=== PATIENT | female | born 1980 | race Caucasian/White ===

== ENCOUNTER 2019-11-16 09:59 | Emergency (ER) | payer OTHER ==
[2019-11-16 10:07] VITALS: BP 121/76; PULSE 75; TEMP 97.9; BMI 25.8
[2019-11-16] MEDS ORDERED: METOCLOPRAMIDE HCL INJECTION 10 MG/2 ML VIAL IVPB ONE (10:10)
[2019-11-16] MEDS ORDERED: KETOROLAC TROMETHAMINE 30 MG/1 ML VIAL IVPUSH ONE (10:10)
--- NOTE | 2019-11-16 10:10 | PDOC ---
History of Present Illness - General Chief Complaint: Headache Stated Complaint: HEADACHE Time Seen by Provider: 11/16/19 10:08 History Source: Patient - History of Present Illness Timing/Duration: reports: 1 week Past History - Past Medical History Allergies/Adverse Reactions: Allergies Allergy/AdvReac Type Severity Reaction Status Date / Time No Known Allergies Allergy Verified 11/16/19 10:03 Home Medications: Ambulatory Orders Sumatriptan Succinate [Imitrex -] 50 mg PO ASDIR #30 tablet 11/16/19 - Psycho Social/Smoking Cessation Hx Smoking History: Current some day smoker Information on smoking cessation initiated: No Hx Alcohol Use: No Drug/Substance Use Hx: No Review of Systems - Review of Systems Constitutional: No: Chills, Fever ABD/GI: Yes: Nausea. No: Vomiting Neurological: Yes: Headache. No: Numbness, Tingling, Weakness, Dizziness *Physical Exam - Vital Signs Last Vital Signs Temp Pulse Resp BP Pulse Ox 97.9 F 75 17 121/76 98 11/16/19 10:03 11/16/19 10:03 11/16/19 10:03 11/16/19 10:03 11/16/19 10:03 - Physical Exam General Appearance: Yes: Appropriately Dressed. No: Apparent Distress HEENT: positive: Normal Voice. 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 Pain sharp, 10 out of 10 at its worst with no exacerbating factors. Reports nausea and photophobia consistent with her prior migraine headaches. No vomiting dizziness neck pain fever chills or rash. Has no Imitrex at home but has been taking 800 mg Motrin with mild relief only per patient see exam SAUCEDA Recurrent Endorses h/o migraines, ran out of imitrex No new sxs Stable w/ intact neuro exam No red flags at this time -upreg -pain meds and reassess 11/16/19 11:16 Patient reports feeling better with meds. Upreg negative. Dc with prescription for Imitrex and to follow-up with pt's neurologist as needed Discharge - Discharge Information Problems reviewed: Yes Clinical Impression/Diagnosis: Headache Qualifiers: Headache type: unspecified Headache chronicity pattern: unspecified pattern Intractability: not intractable Qualified Code(s): R51 - Headache Condition: Improved Disposition: HOME - Additional Discharge Information Prescriptions: Sumatriptan Succinate [Imitrex -] 50 mg PO ASDIR #30 tablet - Follow up/Referral - Patient Discharge Instructions Patient Printed Discharge Instructions: Migraine -- Adult Additional Instructions: Take Medication as directed for headache and follow-up with your neurologist as needed - Post Discharge Activity Work/Back to School Note: Back to Work
[2019-11-16] MEDS ORDERED: KETOROLAC TROMETHAMINE 30 MG/1 ML VIAL ONE (10:16)
[2019-11-16] MEDS ORDERED: METOCLOPRAMIDE HCL INJECTION 10 MG/2 ML VIAL ONE (10:16)
== END 2019-11-16 12:16 | disposition home or self-care (01) ==
LOC: JER 09:59
PROC: 3E033GC Introduction of Other Therapeutic Substance into Peripheral Vein, Percutaneous Approach (ICD-10-PCS; principal; 2019-11-16)
PROC: 3E0333Z Introduction of Anti-inflammatory into Peripheral Vein, Percutaneous Approach (ICD-10-PCS; 2019-11-16)
DX: R51 Headache (principal)
CPT/HCPCS: 84703; 99284-25